=== PATIENT | male | born 1965 | race Two or more races ===

== ENCOUNTER → 2023-04-28 09:54 | Outpatient (REF) | payer BC, SELFPAY | LOC: RAD 09:54 | PROVIDERS: ATTENDING PHYSICIAN Surgery; FAMILY PHYSICIAN Internal Medicine | DX: N50.812 Left testicular pain (principal) | CPT/HCPCS: 76870; 93976 ==

== ENCOUNTER → 2024-11-02 08:57 | Outpatient (REF) | payer BC, SELFPAY | LOC: HWRAD 08:57 | PROVIDERS: ATTENDING PHYSICIAN Specialist; FAMILY PHYSICIAN Internal Medicine | DX: N28.1 Cyst of kidney, acquired (principal) | CPT/HCPCS: 76775 ==

== ENCOUNTER → 2024-11-09 12:41 | Outpatient (REF) | payer BC, SELFPAY | LOC: HWRAD 12:41 | PROVIDERS: ATTENDING PHYSICIAN Internal Medicine Critical Care Medicine; FAMILY PHYSICIAN Internal Medicine | DX: R91.8 Other nonspecific abnormal finding of lung field (principal); J98.11 Atelectasis | CPT/HCPCS: 71250 ==